=== PATIENT | female | born 1935 | race Caucasian/White ===

== ENCOUNTER 2017-12-06 14:40 | Emergency (ER) | payer MEDICARE, OTHER ==
[~2017-12-06] VITALS: Ht 157.5 cm; Wt 69.0 kg
--- OUTSIDE RECORDS SUMMARY | ~2017-12-06 | XMS | Clinical Summary ---
Demographics + + + | Address | [address] | | | [place] [address] | + + + | Home Phone | | + + + | Preferred Language | Unknown | + + + | Marital Status | | + + + | Orthodoxy Affiliation | Unknown | + + + | Race | Unknown | + + + | Ethnic Group | Unknown | + + + Author + + + | Author | [facility] | | | and [place] | + + + | Organization | [facility] | | | and [place] | + + + | Address | Unknown | + + + | Phone | Unavailable | + + + Support + + + + + | Name | Relationship | Address | Phone | + + + + + | Donny Vaca | ECON | [address] | | | | | [place] | | | | | [address] | | + + + + + | Radha Echavarria | ECON | [address] | | | | | [place] | | | | | [address] | | + + + + + | Ash Echaavrria | ECON | Unknown | | + + + + + Care Team Providers + +------+ + | Care Director Technical Name | Role | Phone | + +------+ + PP | Unavailable | + +------+ + Allergies + + + + + + | Active Allergy | Reactions | Severity | Noted | Comments | | | | | Date | | + + + + + + | Lisinopril | Other (See Comments) | Low | 04/18/20 | Cough | | | | | 13 | | + + + + + + | Statins | Other (See Comments) | Low | 04/18/20 | Myalgia. "Wiped | | | | | 13 | out" | + + + + + + Current Medications + + + +---------+------+------+-------+ | Prescription | Sig. | Disp. | Refills | Star | End | Statu | | | | | | t | Date | s | | | | | | Date | | | + + + +---------+------+------+-------+ | Cholecalciferol | | | | 09/1 | | Activ | | (VITAMIN D) 1000 | | | | 2/20 | | e | | UNITS CAPS | | | | 12 | | | + + + +---------+------+------+-------+ | Riboflavin (B-2 | TABS | | | 09/1 | | Activ | | PO) | | | | 2/20 | | e | | | | | | 12 | | | + + + +---------+------+------+-------+ | potassium chloride | Take 10 mEq by mouth | | | | | Activ | | (KLOR-CON) 10 mEq | Daily. No longer | | | | | e | | CR tablet | taking | | | | | | + + + +---------+------+------+-------+ | PARoxetine (PAXIL) | Take 20 mg by mouth | | | | | Activ | | 20 mg tablet | every morning. | | | | | e | + + + +---------+------+------+-------+ | Multiple Vitamin | Take by mouth. | | | | | Activ | | (MULTI-VITAMIN DAILY | | | | | | e | | PO) | | | | | | | + + + +---------+------+------+-------+ | Multiple | Take by mouth. | | | | | Activ | | Vitamins-Minerals | | | | | | e | | (OCUVITE EXTRA PO) | | | | | | | + + + +---------+------+------+-------+ | Omeprazole | Take 20 mg by mouth | | | 04/10 | | Activ | | (PRILOSEC PO) | Daily. | | | 09/29 | | e | | | | | | 12 | | | + + + +---------+------+------+-------+ | SUMAtriptan | Take 100 mg by mouth | | | 04/10 | | Activ | | (IMITREX) 100 mg | as needed. | | | 2/ | | e | | tablet | | | | 12 | | | + + + +---------+------+------+-------+ | metoprolol | Take 50 mg by mouth | | | | | Activ | | succinate | Daily. | | | | | e | | (TOPROL-XL) 50 mg 24 | | | | | | | | hr tablet | | | | | | | + + + +---------+------+------+-------+ | levothyroxine | Take 50 mcg by mouth | | | | | Activ | | (SYNTHROID, | every morning | | | | | e | | LEVOTHROID) 50 mcg | (before breakfast). | | | | | | | tablet | | | | | | | + + + +---------+------+------+-------+ | | Take 1 tablet by | | | | | Activ | | spironolactone-hydro | mouth Daily. | | | | | e | | chlorothiazide | | | | | | | | (ALDACTAZIDE) 25-25 | | | | | | | | mg per tablet | | | | | | | + + + +---------+------+------+-------+ | fish oil 1,000 mg | Take 1,000 mg by | | | | | Activ | | capsule | mouth 3 times daily. | | | | | e | + + + +---------+------+------+-------+ | | Take 1-2 tablets by | 60 | 0 | 01/0 | | Activ | | HYDROcodone-acetamin | mouth every 4 hours | tablet | | 1/20 | | e | | ophen (NORCO) 10-325 | as needed for Pain. | | | 15 | | | | mg per tablet | | | | | | | + + + +---------+------+------+-------+ | Lactulose | Take 15-30 mLs by | 240 mL | 0 | 01/0 | | Activ | | Encephalopathy 10 | mouth Daily as | | | 7/20 | | e | | g/15 mL SOLN | needed. | | | 15 | | | + + + +---------+------+------+-------+ Active Problems + + + | Problem | Noted Date | + + + | Lumbalgia | 05/13/2013 | + + + | Sacroiliac joint dysfunction of left side | 05/13/2013 | + + + | Lumbosacral radiculopathy at L5 | 05/13/2013 | + + + + + | Overview: scar tissue at left L5-S1 | + + + + + | Spondylolisthesis | 05/13/2013 | + + + + + | Overview: anterior L4 on L5 | + + + + + | Status post lumbar spinal fusion | 05/13/2013 | + + + + + | Overview: L5-S1 | + + + + + | Lumbar spondylosis | 12/03/2009 | + + + + + | Overview: SCARLET [id number] Decision | + + + +---+ | BACK PAIN, LUMBAR | | + +---+ | High blood pressure | | + +---+ | Hypothyroid | | + +---+ | Acid reflux | | + +---+ | Arthritis | | + +---+ | High cholesterol | | + +---+ | Cancer (HCC) | | + +---+ | Depression | | + +---+ | Thoracic or lumbosacral neuritis or radiculitis, unspecified | | + +---+ | Lumbago | | + +---+ | Disorders of bursae and tendons in shoulder region, unspecified | | + +---+ + + | Overview: ICD-10 Record update | + + + +---+ | Migraine | | + +---+ Encounters +--------+ + + + + | Date | Type | Specialty | Care Team | Description | +--------+ + + + + | 09/15/ | Emergency | | [place], | Shoulder injury, | | 2017 | | | Daniel Viera MD | right, initial | | | | | | encounter (Primary | | | | | | Dx); Contusion of | | | | | | right elbow, initial | | | | | | encounter | +--------+ + + + + from Last 3 Months Family History + + +------+ + | Medical History | Relation | Name | Comments | + + +------+ + | Migraines | Daughter | | | + + +------+ + | High blood pressure | Daughter | | | + + +------+ + | High blood pressure | Father | | | + + +------+ + | Stroke | Father | | | + + +------+ + | Heart disease | Mother | | | + + +------+ + | High blood pressure | Mother | | | + + +------+ + | Migraines | Son | | | + + +------+ + + +------+ + + | Relation | Name | Status | Comments | + +------+ + + | Daughter | | | | + +------+ + + | Daughter | | | | + +------+ + + | Father | | | stroke | | | | (Age | | | | | 84) | | + +------+ + + | Mother | | | congestive heart failure | | | | (Age | | | | | 88) | | + +------+ + + | Son | | | cancer | | | | (Age | | | | | 58) | | + +------+ + + | Son | | | | + +------+ + + Social History + +-------+ +--------+------+ | Tobacco Use | Types | Packs/Day | Years | Date | | | | | Used | | + +-------+ +--------+------+ | Never Smoker | | | | | + +-------+ +--------+------+ + +---+---+---+ | Smokeless Tobacco: | | | | | Never Used | | | | + +---+---+---+ + + +---------+ + | Alcohol Use | Drinks/We | oz/Week | Comments | | | ek | | | + + +---------+ + | No | | | Rarely | + + +---------+ + + + + | Sex Assigned at | Date Recorded | | | | + + + | Not on file | | + + + Last Filed Vital Signs + + + + | Vital Sign | Reading | Time Taken | + + + + | Blood Pressure | 158/66 | 09/15/2017905 PST | + + + + | Pulse | 51 | 09/15/2017905 PST | + + + + | Temperature | 36.4 C (97.5 F) | 09/15/2017905 PST | + + + + | Respiratory Rate | 16 | 09/15/2017905 PST | + + + + | Oxygen Saturation | 97% | 09/15/2017905 PST | + + + + | Inhaled Oxygen | - | - | | Concentration | | | + + + + | Weight | 68 kg (150 lb) | 09/15/2017905 PST | + + + + | Height | 157.5 cm (5' 2") | 09/15/2017905 PST | + + + + | Body Mass Index | 27.44 | 09/15/2017905 PST | + + + + Plan of Treatment + + + + + | Health Maintenance | Due Date | Last Done | Comments | + + + + + | Vaccine: | | | | | Dtap/Tdap/Td (1 - | 5 | | | | Tdap) | | | | + + + + + | Vaccine: | | | | | Pneumococcal 65+ | 1 | | | | High/Highest Risk (1 | | | | | of 2 - PCV13) | | | | + + + + + | Vaccine: Influenza | | | | | (Season Ended) | 8 | | | + + + + + Implants + +------+--------+ +--------+--------+--------+ | Implanted | Type | Area | Manufacture | Device | Expira | Model | | | | | r | | tion | / | | | | | | Identi | Date | Serial | | | | | | fier | | / Lot | + +------+--------+ +--------+--------+--------+ | Putty Sublette 10cc Dbm - | | N/A: | OSTEOTECH - | | 10/04/ | [id number] | | [id number]: Qty: 1 | | Spine | OSTT | | 2017 | | | on 08/08/2014 by Bg, | | Lumbar | | | | [id number] | | Herbie Viera DO | | | | | | 2-116 | | | | | | | | / | + +------+--------+ +--------+--------+--------+ | Screw Mas G5 Slra 7.5x45 Cn - | | N/A: | SOFAMOR | | | [id number] | | [id number]: Qty: 2 | | Spine | DANEK - DIV | | | [id number] | | on 08/08/2014 by Bg, | | Lumbar | [employer] | | | / / | | Herbie Viera DO | | | - SFDK | | | | + +------+--------+ +--------+--------+--------+ | Screw Cinthya Solera 6.5x55mm - | | N/A: | SOFAMOR | | | [id number] | | [id number]: Qty: 3 on | | Spine | DANEK - DIV | | | [id number] | | 08/08/2014 by Herbie Pederson | | Lumbar | [employer] | | | / / | | A DO | | | - SFDK | | | | + +------+--------+ +--------+--------+--------+ | Screw Cinthya Solera 6.5x60mm - | | N/A: | SOFAMOR | | | [id number] | | [id number]: Qty: 1 on | | Spine | DANEK - DIV | | | [id number] | | 08/08/2014 by Herbie Pederson | | Lumbar | [employer] | | | / / | | DO Maximiliano | | | - SFDK | | | | + +------+--------+ +--------+--------+--------+ | Set Scrw Ns G5 Brk Off Ti | | N/A: | SOFAMOR | | | [id number] | | 4.75 - [id number]: | | Spine | DANEK - DIV | | | 0 / / | | Qty: 6 on 08/08/2014 by | | Lumbar | [employer] | | | | | Herbie Pederson DO | | | - SFDK | | | | + +------+--------+ +--------+--------+--------+ | Imp Spn Carlos Sext Ti | | N/A: | SOFAMOR | | | [id number] | | [id number] - | | Spine | DANEK - DIV | | | 5070 / | | [id number]: Qty: 2 on | | Lumbar | [employer] | | | / | | 08/08/2014 by Herbie Pederson | | | - SFDK | | | | | A, DO | | | | | | | + +------+--------+ +--------+--------+--------+ | Chips Cancellous 15cc - | | | OSTEOTECH - | | | [id number] | | [id number]: Qty: 1 | | | OSTT | | | | | on 08/08/2014 | | | | | | /[id number] | | | | | | | | 8-019 | | | | | | | | / | + +------+--------+ +--------+--------+--------+ Results XR Elbow Right 3 + Vw (09/15/2017 0948) + + | Narrative | + + | THREE VIEWS RIGHT ELBOW 09/15/2017 9:48 AM CLINICAL HISTORY: fall, elbow pain | | COMPARISON: None available FINDINGS: The bones are well-mineralized and well | | aligned. No fracture or subluxation is evident. Joint spaces are | | maintained. No elbow effusion or other soft tissue abnormality is evident. | | IMPRESSION - 1. NO RADIOGRAPHIC EVIDENCE OF TRAUMATIC INJURY. Dictated and | | Signed by: Gerhard Forte MD Electronically signed: 09/15/2017 10:00 AM | + + + + | Procedure Note | + + | Layton Pyle Results In - 09/15/2017 1003 PST THREE VIEWS RIGHT ELBOW 09/15/2017 9:48 AM | | | | CLINICAL HISTORY: fall, elbow pain | | | | COMPARISON: None available | | | | FINDINGS: The bones are well-mineralized and well aligned. No fracture or | | subluxation is evident. Joint spaces are maintained. No elbow effusion or | | other soft tissue abnormality is evident. | | | | IMPRESSION - | | 1. NO RADIOGRAPHIC EVIDENCE OF TRAUMATIC INJURY. | | | | Dictated and Signed by: Gerhard Forte MD | | Electronically signed: 09/15/2017 10:00 AM | + + XR Shoulder Right 2 + Vw (09/15/2017 0948) + + | Narrative | + + | THREE VIEWS RIGHT SHOULDER 09/15/2017 9:48 AM CLINICAL HISTORY: SHOULDER PAIN | | COMPARISON: ELBOW RADIOGRAPHS FROM THE SAME DAY FINDINGS: The bones are | | well-mineralized and well aligned. No fracture or subluxation is evident. Subtle | | rounded lucencies laterally in the humeral head are likely degenerative and favor | | cysts. The glenohumeral and acromioclavicular joints are maintained. Axillary | | vascular calcification is present. Imaged chest and soft tissues are otherwise | | unremarkable. IMPRESSION - 1. NO RADIOGRAPHIC EVIDENCE OF TRAUMATIC INJURY. | | 2. PROBABLE DEGENERATIVE CYSTIC CHANGE IN THE HUMERAL HEAD. Dictated and Signed | | by: Gerhard Forte MD Electronically signed: 09/15/2017 9:59 AM | + + + + | Procedure Note | + + | Edenil[place], Rad Results In - 09/15/2017 1002 PST THREE VIEWS RIGHT SHOULDER 09/15/2017 9:48 AM | | | | CLINICAL HISTORY: SHOULDER PAIN | | | | COMPARISON: ELBOW RADIOGRAPHS FROM THE SAME DAY | | | | FINDINGS: The bones are well-mineralized and well aligned. No fracture or | | subluxation is evident. Subtle rounded lucencies laterally in the humeral head | | are likely degenerative and favor cysts. The glenohumeral and acromioclavicular | | joints are maintained. Axillary vascular calcification is present. Imaged | | chest and soft tissues are otherwise unremarkable. | | | | IMPRESSION - | | 1. NO RADIOGRAPHIC EVIDENCE OF TRAUMATIC INJURY. | | | | 2. PROBABLE DEGENERATIVE CYSTIC CHANGE IN THE HUMERAL HEAD. | | | | Dictated and Signed by: Gerhard Forte MD | | Electronically signed: 09/15/2017 9:59 AM | + + from Last 3 Months Insurance + +--------+ +--------+ + + | Payer | Benefi | Subscriber | Type | Phone | Address | | | t Plan | ID | | | | | | / | | | | | | | Group | | | | | + +--------+ +--------+ + + | MEDICARE | MEDICA | xxxxxxxxxx | Medica | [phone]- | | | | RE | | re | [id number] | | | | PART A | | | | | | | AND B | | | | | + +--------+ +--------+ + + | MODA | MODA | xxxxxxxxx | Indemn | [phone] | [address] [address] | | | HEALTH | | ity | [phone] | [facility] [place] [address] | | | MDCR | | | | | | | SUPPL | | | | | + +--------+ +--------+ + + + +--------+ +--------+ + + | Guarantor Name | Accoun | Relation to | Date | Phone | Billing Address | | | t Type | Patient | of | | | | | | | | | | + +--------+ +--------+ + + | MIRNA VACA | Person | Self [birth year] Home: | [address] | | [place] | al/Fam | | 1935 | [phone] | [place] [address] | | | [place] | | | [address] | | + +--------+ +--------+ + +
--- OUTSIDE RECORDS SUMMARY | ~2017-12-06 | XMS | Clinical Summary ---
Demographics + + + | Address | [address] | | | [place] [address] | + + + | Home Phone | | + + + | Preferred Language | Unknown | + + + | Marital Status | | + + + | Presybeterian Affiliation | Unknown | + + + | Race | Unknown | + + + | Ethnic Group | Unknown | + + + Author + + + | Author | [facility] | | | and [place] | + + + | Organization | [facility] | | | and [place] | [...] [place] | | | | | [address] | | + + + + + | Radha Echavarria | ECON | [address] | | | | | [place] | | | | | [address] | | + + + + + | Ash Echavarria | ECON | Unknown | | + + + + + Care Team Providers + +------+ + | Care Graphic Pre Press Trades Worker Name | Role | Phone | + [...] + + + + | Overview: SCARLET [id number] Decision | + + + +---+ | [...] Lot | + +------+--------+ +--------+--------+--------+ | Putty Washita 10cc Dbm - | | N/A: | OSTEOTECH - | | 10/04/ | [id number] | | [id number]: Qty: 1 | | Spine | OSTT [...] | N/A: | SOFAMOR | | | [id number] | | [id number]: Qty: 2 | | Spine | DANEK - DIV | | | [id number] | | on 08/08/2014 by Bg, | | Lumbar | [employer] | | | / / | | Herbie Viera DO | | | - SFDK | | | | + +------+--------+ +--------+--------+--------+ | Screw Cinthya Solera 6.5x55mm - | | N/A: | SOFAMOR | | | [id number] | | [id number]: Qty: 3 on | | Spine | DANEK - DIV | | | [id number] | | 08/08/2014 by Herbie Pederson | | Lumbar | [employer] | | | / / | | A DO | | | - SFDK | | | | + +------+--------+ +--------+--------+--------+ | Screw Cinthya Solera 6.5x60mm - | | N/A: | SOFAMOR | | | [id number] | | [id number]: Qty: 1 on | | Spine | DANEK - DIV | | | [id number] | | 08/08/2014 by Herbie Pederson | | Lumbar | [employer] | | | / / | | DO Maximiliano | | | - SFDK | | | | + +------+--------+ +--------+--------+--------+ | Set Scrw Ns G5 Brk Off Ti | | N/A: | SOFAMOR | | | [id number] | | 4.75 - [id number]: | | Spine | DANEK - DIV | | | 0 / / | | Qty: 6 on 08/08/2014 by | | Lumbar | [employer] | | | | | Herbie Pederson DO | | | - SFDK | | | | + +------+--------+ +--------+--------+--------+ | Imp Spn Carlos Sext Ti | | N/A: | SOFAMOR | | | [id number] | | [id number] - | | Spine | DANEK - DIV | | | 5070 / | | [id number]: Qty: 2 on | | Lumbar | [employer] | | | / | | 08/08/2014 by Herbie Pederson | | | - SFDK | | | | | A, DO | | | | | | | + +------+--------+ +--------+--------+--------+ | Chips Cancellous 15cc - | | | OSTEOTECH - | | | [id number] | | [id number]: Qty: 1 | | | OSTT | | | | | on 08/08/2014 | | | | | | /[id number] | | | | | | | [...] | MODA | [phone] | Indemn | [phone] | [address] [address] | | | HEALTH | | ity | [phone] | [facility] [place] [address] | | | MDCR | | | [...] | 1935 | [phone] | [place] [address] | | | [place] | | | [address] | | + +--------+ +--------+ + +
--- OUTSIDE RECORDS SUMMARY | ~2017-12-06 | XMS | Encounter Summary ---
Demographics + + + | Address | [address] | | | [place] [address] | + + + | Home Phone | | + + + | Preferred Language | Unknown | + + + | Marital Status | | + + + | Restorationism Affiliation | Unknown | + + + | Race | Unknown | + + + | Ethnic Group | Unknown | + + + Author + + + | Author | [facility] | | | and [place] | + + + | Organization | [facility] | | | and [place] | + + + | Address | Unknown | + + + | Phone | Unavailable | + + + Support + + + + + | Name | Relationship | Address | Phone | + + + + + | Donny Metcalf | ECON | [address] | | | | | [place] | | | | | [address] | | + + + + + | Radha Echavarria | ECON | [address] | | | | | [place] | | | | | [address] | | + + + + + | Ash Echavarria | ECON | Unknown | | + + + + + Care Team Providers + +------+ + | Care Drain Cleaner Name | Role | Phone | + +------+ + | Unknown, Doctor | PCP | Unavailable | + +------+ + Reason for Visit + + + | Reason | Comments | + + + | Shoulder Pain | | + + + Encounter Details +--------+ + + + + | Date | Type | Department | Care Team | Description | +--------+ + + + + | 09/15/ | Emergency | [facility] | [place], | Shoulder injury, | | 2018 | | [facility] | Daniel Viera MD [address] | right, initial | | | | CENTER [address] | [place] [facility] | encounter (Primary | | | | [place], [place] | [place] [address] | Dx); Contusion of | | | | [address] | [phone] | right elbow, initial | | | | [phone] | | encounter | +--------+ + + + + Social History + +-------+ +--------+------+ [...] on file | | + + + as of this encounter Last Filed Vital Signs + + + [...] 09/15/2017905 PST | + + + + in this encounter Functional Status + + + + | Functional Status | Response | Date of Assessment | + + + + | Are you deaf or do you have serious | No | 08/10/2014 | | difficulty hearing? | | | + + + + | Are you blind or do you have serious | No | 08/10/2014 | | difficulty seeing, even when wearing | | | | glasses? | | | + + + + | Do you have serious difficulty walking or | No | 08/10/2014 | | climbing stairs? (5 years old or older) | | | + + + + | Do you have difficulty dressing or bathing? | No | 08/10/2014 | | (5 years old or older) | | | + + + + | Because of a physical, mental, or emotional | No | 08/10/2014 | | condition, do you have difficulty doing | | | | errands alone such as visiting a doctor's | | | | office or shopping? [15 years old or | | | | older)] | | | + + + + + + + + | Cognitive Status | Response | Date of Assessment | + + + + | Because of a physical, mental, or emotional | No | 08/10/2014 | | condition, do you have serious difficulty | | | | concentrating, remembering, or making | | | | decisions? (5 years old or older) | | | + + + + as of this encounter Discharge Instructions Daniel Marks MD - 09/15/2017Sling for comfort Gentle range of motion exercises If not improving, consider physical therapyin this encounter Medications at Time of Discharge + + + +---------+ + + | Medication | Sig. | Disp. | Refills | Start | End Date | | | | | | Date | | + + + +---------+ + + | Cholecalciferol | | | | 04/21/20 | | | (VITAMIN D) 1000 | | | | 12 | | | UNITS CAPS | | | | | | + + + +---------+ + + | fish oil 1,000 mg | Take 1,000 mg by | | | | | | capsule | mouth 3 times daily. | | | | | + + + +---------+ + + | | Take 1-2 tablets by | 60 | 0 | 08/10/19 | | | HYDROcodone-acetamin | mouth every 4 hours | tablet | | 15 | | | ophen (NORCO) 10-325 | as needed for Pain. | | | | | | mg per tablet | | | | | | + + + +---------+ + + | Lactulose | Take 15-30 mLs by | 240 mL | 0 | 08/16/19 | | | Encephalopathy 10 | mouth Daily as | | | 15 | | | g/15 mL SOLN | needed. | | | | | + + + +---------+ + + | levothyroxine | Take 50 mcg by mouth | | | | | | (SYNTHROID, | every morning | | | | | | LEVOTHROID) 50 mcg | (before breakfast). | | | | | | tablet | | | | | | + + + +---------+ + + | metoprolol | Take 50 mg by mouth | | | | | | succinate | Daily. | | | | | | (TOPROL-XL) 50 mg 24 | | | | | | | hr tablet | | | | | | + + + +---------+ + + | Multiple Vitamin | Take by mouth. | | | | | | (MULTI-VITAMIN DAILY | | | | | | | PO) | | | | | | + + + +---------+ + + | Multiple | Take by mouth. | | | | | | Vitamins-Minerals | | | | | | | (OCUVITE EXTRA PO) | | | | | | + + + +---------+ + + | Omeprazole | Take 20 mg by mouth | | | 04/21/20 | | | (PRILOSEC PO) | Daily. | | | 12 | | + + + +---------+ + + | PARoxetine (PAXIL) | Take 20 mg by mouth | | | | | | 20 mg tablet | every morning. | | | | | + + + +---------+ + + | potassium chloride | Take 10 mEq by mouth | | | | | | (KLOR-CON) 10 mEq | Daily. No longer | | | | | | CR tablet | taking | | | | | + + + +---------+ + + | Riboflavin (B-2 | TABS | | | 04/21/20 | | | PO) | | | | 12 | | + + + +---------+ + + | | Take 1 tablet by | | | | | | spironolactone-hydro | mouth Daily. | | | | | | chlorothiazide | | | | | | | (ALDACTAZIDE) 25-25 | | | | | | | mg per tablet | | | | | | + + + +---------+ + + | SUMAtriptan | Take 100 mg by mouth | | | 04/21/20 | | | (IMITREX) 100 mg | as needed. | | | 12 | | | tablet | | | | | | + + + +---------+ + + as of this encounter Plan of Treatment Not on fileas of this encounter Results XR Elbow Right 3 + Vw [...] | Edenilson, Rad Results In - 09/15/2017 1003 PST THREE [...] signed: 09/15/2017 9:59 AM | + + in this encounter Visit Diagnoses + + | Diagnosis | + + | Shoulder injury, right, initial encounter - Primary | + + | Contusion of right elbow, initial encounter | + +
--- OUTSIDE RECORDS SUMMARY | ~2017-12-06 | XMS | Encounter Summary ---
Demographics + + + | Address | [address] | | | [place] [address] | + + + | Home Phone | | + + + | Preferred Language | Unknown | + + + | Marital Status | | + + + | Rastafari Affiliation | Unknown | + + + | Race | Unknown | + + + | Ethnic Group | Unknown | + + + Author + + + | Author | [facility] | | | and [place] | + + + | Organization | [facility] | | | and [place] | [...] [place] | | | | | [address] | | + + + + + | Radha Echavarria | ECON | [address] | | | | | [place] | | | | | [address] | | + + + + + | Ash Echavarria | ECON | Unknown | | + + + + + Care Team Providers + +------+ + | Care Weight Caller Name | Role | Phone | + [...] + + | 09/15/ | Emergency | [facility] | [place], | Shoulder injury, | | 2018 | | [facility] | Daniel Viera MD [address] | right, initial | | | | CENTER [address] | [place] [facility] | encounter (Primary | | | | [place], [place] | [place] [address] | Dx); Contusion of | | | | [address] | [phone] | right elbow, initial | | | | [phone] | | encounter | +--------+ + + [...]
[~2017-12-06 14:40] MED LIST: AMLODIPINE BESYL5 MG PO; AUGMENTIN 875-1 EACH PO; B100 BALANCED100 MG PO; BENICAR40 MG PO; CODEINE-GUAIFE473 ML PO; HYDROCODON-ACE1 EA10 PO; IMITREX100 MG PO; LEVOTHYROXINE50 MCG PO; MECLIZINE HCL25 MG PO; METOPROLOL SUCC50 MG PO; MULTIVITAMINS1 EAC7 PO; OCUVITE TABLET1 EAC1 PO; OMEPRAZOLE20 MG PO; PAROXETINE HCL20 MG PO; PAXIL20 MG PO; POTASSIUM CHLO10 ME1 PO; POTASSIUM CHLO10 MEQ PO; PRILOSEC20 MG PO; PROAIR HFA8.5 GM IH; SPIRONOLACTONE1 EACH PO; VITAMIN D1000 UNI1 PO; ZITHROMAX250 MG PO
[2017-12-06] MEDS ORDERED: NORCO 5-325 TA1 EACH PO (15:08)
[2017-12-06] MEDS ORDERED: SILVADENE20 GM TOP (15:08)
[2018-01-26] MEDS ORDERED: ASPIR-LOW81 MG PO (10:08)
[2018-01-26] MEDS ORDERED: FISH OIL 1,0001 EAC2 NG (10:09)
[2018-01-26] MEDS ORDERED: LEVO-T50 MCG PO (10:09)
== END 2017-12-06 15:20 | disposition home or self-care (01) ==
LOC: ED 14:40
PROC: 2W2EX4Z Dressing of Right Hand using Bandage (ICD-10-PCS; principal; 2017-12-06)
DX: T23.201A Burn of second degree of right hand, unspecified site, initial encounter (principal); T31.0 Burns involving less than 10% of body surface; I10 Essential (primary) hypertension; Z88.8 Allergy status to other drugs, medicaments and biological substances; Z79.899 Other long term (current) drug therapy; X08.8XXA Exposure to other specified smoke, fire and flames, initial encounter
CPT/HCPCS: 16020; 99283

== ENCOUNTER 2018-08-24 18:58 | Observation (INO) | payer MEDICARE, OTHER ==
[~2018-08-24] VITALS: Ht 157.5 cm; Wt 66.7 kg
[~2018-08-24 18:58] MED LIST changes: +ASPIR-LOW81 MG PO; +FISH OIL 1,0001 EAC2 NG; +LEVO-T50 MCG PO; +NORCO 5-325 TA1 EACH PO; +SILVADENE20 GM TOP
[2018-08-24] MEDS ORDERED: NORCO 5-325 TA1 EACH PO (19:49)
[2018-08-24] MEDS ORDERED: CYMBALTA60 MG PO (19:50)
--- NOTE | 2018-08-25 10:55 | EKG ---
[facility] [address] [place], [place] [address] Signed Accelerated Junctional rhythm Nonspecific ST abnormality Abnormal ECG When compared with ECG of 24-AUG-2018 19:04, (Unconfirmed) No significant change was found Confirmed by ALISA RUSSELL MD ([id number]) on 08/25/2018 10:53:41 AM Also confirmed by ALISA RUSSELL MD ([id number]) on 08/25/2018 10:54:55 AM Electronically Signed By: ALISA RUSSELL MD 08/25/18 1053 Electronically Signed By: ALISA RUSSELL MD 08/25/18 1055 PATIENT NAME: PRACHI VACA Electrocardiogram DATE OF : 37 PHYSICIAN: ALISA RUSSELL MD REPORT #: [id number] REPORT IS CONFIDENTIAL AND NOT TO BE RELEASED WITHOUT AUTHORIZATION
[2018-08-25] MEDS ORDERED: TOPROL XL50 MG PO (12:27)
--- NOTE | 2018-08-26 13:32 | EKG ---
[facility] [address] [facility] [place] [address] Signed Sinus rhythm with 1st degree AV block Septal infarct , age undetermined Abnormal ECG When compared with ECG of 24-AUG-2018 19:05, Sinus rhythm has replaced Junctional rhythm Vent. rate has decreased BY 38 BPM Nonspecific T wave abnormality no longer evident in Inferior leads Nonspecific T wave abnormality no longer evident in Lateral leads Confirmed by DAYRON SOUTH DO ([id number]) on 08/26/2018 1:31:56 PM Electronically Signed By: DAYRON SOUTH DO 08/26/18 1332 PATIENT NAME: PRACHI VACA Electrocardiogram DATE OF : 37 PHYSICIAN: DAYRON SOUTH DO REPORT #: [id number] REPORT IS CONFIDENTIAL AND NOT TO BE RELEASED WITHOUT AUTHORIZATION
== END 2018-08-25 14:40 | disposition home or self-care (01) ==
LOC: ED 18:58 → MS 19:00
PROVIDERS: ADMIT Internal Medicine
DX: R07.89 Other chest pain (principal); I10 Essential (primary) hypertension; E03.9 Hypothyroidism, unspecified; E78.5 Hyperlipidemia, unspecified; K21.9 Gastro-esophageal reflux disease without esophagitis; F41.9 Anxiety disorder, unspecified; Z79.899 Other long term (current) drug therapy; Z79.82 Long term (current) use of aspirin; Z79.891 Long term (current) use of opiate analgesic; Z96.611 Presence of right artificial shoulder joint
CPT/HCPCS: 36415; 71045; 71260; 74018; 80048; 80053; 83735; 84439; 84443; 84484; 85025; 93005; 93010; 96374; 96375; 96376; 99285-25; C9113; G0378; J1885; J2060; J2405; J3010; Q9967

== ENCOUNTER 2021-01-06 18:30 | Emergency (ER) | payer MEDICARE, OTHER ==
[~2021-01-06] VITALS: Ht 157.5 cm; Wt 66.7 kg
[~2021-01-06 18:30] MED LIST changes: +CYMBALTA60 MG PO; +TOPROL XL50 MG PO
[2021-01-06] MEDS ORDERED: PENICILLIN V P500 MG PO (19:36)
== END 2021-01-06 20:03 | disposition home or self-care (01) ==
LOC: ED 18:30
DX: K04.7 Periapical abscess without sinus (principal); I10 Essential (primary) hypertension; E03.9 Hypothyroidism, unspecified; Z88.8 Allergy status to other drugs, medicaments and biological substances; Z79.899 Other long term (current) drug therapy; Z79.82 Long term (current) use of aspirin
CPT/HCPCS: 99282